=== PATIENT | male | born 1980 | race Caucasian/White ===

== ENCOUNTER → 2017-10-24 10:30 | Outpatient (CLI) | payer MEDICARE, MEDICAID, SELFPAY | PROVIDERS: PCP Nurse Practitioner Family; Visit Provider Psychiatry & Neurology Neurology | DX: G40.011 Localization-related (focal) (partial) idiopathic epilepsy and epileptic syndromes with seizures of localized onset, intractable, with status epilepticus (principal) | CPT/HCPCS: 99213 ==

== ENCOUNTER 2019-07-15 14:16 | Emergency (ER) | payer MEDICARE, MEDICAID, SELFPAY ==
[2019-07-15] VITALS (15 sets, daily range): BP systolic 112–134; BP diastolic 65–73; PULSE 88–109; RESP 15–24; TEMP 37.1; O2SAT 93–98
--- NOTE | 2019-07-15 14:15 | DI.CT_ITS ---
EXAM: CT HEAD WO CLINICAL HISTORY: Seizure, postictal, history of same. TECHNIQUE: Imaging Protocol: Axial computed tomography images with coronal and sagittal reformatted images were created and reviewed COMPARISON: HEAD WITHOUT CONTRAST from 02/03/2016 FINDINGS: Ventricles and Extra axial spaces: Normal in size and morphology for the patient's age. Hemorrhage: None. Cerebral parenchyma: Normal. Midline shift: None. Brainstem/Cerebellum: Normal. Calvarium: Normal. Visualized Paranasal sinuses show significant mucosal thickening of the ethmoids. Small mucous reten tion cysts or polyps are seen in the maxillary sinuses. Mastoids: Clear. Soft Tissues: Unremarkable. IMPRESSION: No acute intracranial process. RADIATION DOSE DELIVERED: Total DLP DATA REPOSITORY: All CT scans at this facility are submitted to the National Radiology Data Registry (NRDR) Dose Index Registry (DIR) with the [employer] (ACR). RADIATION OPTIMIZATION: All CT scans at this facility use at least one of these dose optimization te chniques: automated exposure control; mA and/or kV adjustment per patient size (includes targeted exa ms where dose is matched to clinical indication); or iterative reconstruction.
--- NOTE | 2019-07-15 14:22 | ED.GENADUL_ITS ---
Discharge Plan Disposition Patient Disposition: HOME Condition: Improving Discharge Details Chief Complaint: Seizure Clinical Impression: Breakthrough seizure Primary Care Provider: Martha Benedict ED Provider: aBo Lowry Home Meds and New Rx's Prescriptions: New oxcarbazepine [Trileptal] 600 mg tablet 600 mg PO BID Qty: 60 RF: 0 Continued zonisamide [Zonegran] 100 MG capsule 400 mg PO HS Qty: 360 RF: 3 clonazepam 0.5 MG tablet,disintegrating 0.5 mg PO ONCE Qty: 5 RF: 0 ibuprofen 800 MG tablet 800 mg PO q8hr prn Qty: 30 RF: 0 lorazepam 1 mg tablet 1 mg PO PRN Qty: 20 RF: 2 Briviact 50 mg tablet 50 mg PO BID Qty: 180 RF: 3 Discharge Instructions Instructions: Recurrent Seizures in Adults (ED) Additional Instructions: I discussed your case with the on-call neurologist at [facility], Dr. Zepeda. She reviewed your records and stated it appeared that you should continue to take the following medications for your seizure: Zonegran 400 mg at bedtime, Trileptal 600 mg twice a day, Brivaracetam 50mg twice daily. She also asked that you call the neurology office Tuesday or Tuesday to establish any other medication changes and further plans to evaluate you for a deep brain or vagal nerve stimulator. I have provided you with an extra prescription for Trileptal as it was unclear if this medication was refilled at your last neurology visit. Home to rest today. No working on ladders, no swimming or bathing alone, no driving. Return to the emergency department for any acute concerns. Medical Decision Making This is a 38-year-old male with a history of epileptiform seizures for which he is followed at [facility] and for which he takes by Bivaracetam and Zonegram. He was working on a home project today when bystanders state he had a brief approximately 1 to 2-minute generalized tonic-clonic seizure without fall or injury. No vomiting and no tongue laceration, no incontinence. EMS was called and patient was brought to the ED. He states his been compliant with his medications and is awaiting placement of a vagal nerve stimulator. He has a history of drug-resistant epilepsy. Per [facility] records video EEG from 2019 revealed multiple focal temporal seizures and multifocal cortical irritability. He is noted to regularly use marijuana and to have some questionable medication adherence. There has been a question of whether he would be a candidate for Epidiolex (cannabidiol). Patient was slightly postictal but able to conduct an interview. He is afebrile and well-appearing with no focal neurologic deficits. Patient had screening laboratories, CT scan of the head, was given a fluid bolus and his records were reviewed as above. It appears he missed a recent a ppointment on June [address] Anderson. CT scan of the head without acute intracranial abnormality. Laboratories with white blood cell count 11, hematocrit 45, platelets 250. Sodium 137, test 3.8, chloride 101, bicarb 15 with anion gap present likely due to lactic acid of seizure. Note of creatinine 1.4, remainder of chemistries unremarkable. Following fluids and observation patient impoved and ambulatory. Case discussed with on-call Neurology at [facility], Dr. Zepeda, who will leave a note in the chart for his primary neurologist but recommends that the patient continue/restart oxcarbazepine 600 mg twice daily. He will follow-up over the phone with clinic and is stable and improved at this time. HPI General Mode of arrival: EMS . Date/Time Provider Initiated Documentation: 07/15/19 14:23 . Limitations to Documentation: no limitations . Information obtained by: patient and EMS . History of Present Illness 38 year old M presents to the emergency department with the chief complaint of Generalized seizure for approximately 2 minutes, history of same, described as mild and similar to prior episodes, Patient reports no radiation. Patient started experiencing this minute(s) and it has been now resolved. No relieving factors improve symptom(s), No exacerbating factors reported . Patient notes no other symptoms.. Patient did receive the following treatments prior to arrival, none and other Related Data Home Medications Medication Instructions Recorded Confirmed zonisamide [Zonegran] 400 mg PO HS #360 tab-cap 04/13/17 07/15/19 clonazepam 0.5 mg PO ONCE #5 tab-cap 08/01/17 07/15/19 ibuprofen 800 mg PO q8hr prn #30 tab-cap 08/01/17 07/15/19 lorazepam 1 mg tablet 1 mg PO PRN #20 tab 01/19/18 07/15/19 brivaracetam 50 mg tablet 50 mg PO BID #180 tab-cap 18 07/15/19 oxcarbazepine [Trileptal] 600 mg PO BID #60 tab 07/15/19 Previous Rx's Medication Instructions Recorded zonisamide [Zonegran] 400 mg PO HS #360 tab-cap 04/13/17 clonazepam 0.5 mg PO ONCE #5 tab-cap 08/01/17 ibuprofen 800 mg PO q8hr prn #30 tab-cap 08/01/17 lorazepam 1 mg tablet 1 mg PO PRN #20 tab 01/19/18 brivaracetam 50 mg tablet 50 mg PO BID #180 tab-cap 02/16/18 oxcarbazepine [Trileptal] 600 mg PO BID #60 tab 07/15/19 Allergies Allergy/AdvReac Type Severity Reaction Status Date / Time No Known Allergies Allergy Unverified 07/15/19 14:23 Review of Systems Narrative: Denies headache or fever. States he has been taking his medications. See HPI. 8 systems reviewed and otherwise negative [facility] Medical History Bicuspid aortic valve (Acute) Depression (Chronic) Developmental delay, mild (Acute) Essential tremor (Acute) Focal epilepsy (Acute) Hearing loss (Acute) Surgical History (Updated 11/12/16 @ 16:24 by Chrissy Wood RN) forsal nondisplaced fx distal phalanx rgt (01/25/13) Family History (Updated 02/06/18 @ 13:06 by Leena Felipe LPN) Brother Cavernous malformation Social History Smoking/Tobacco Use Status: Current every day Tobacco Type: cigarettes Alcohol Intake: never Drug use: Occasionally Substance use type: marijuana Household members: significant other Do you feel safe at home: Yes Do you feel safe in your relationship?: Yes Exam Narrative Exam Narrative: GEN: awake, alert. Pleasant, well groomed, interactive. HEAD: Normocephalic, atraumatic ENT: Mucous membranes moist, oropharynx unremarkable without lesion or laceration, External ear exam unremarkable EYES: PERRL, EOMI NECK: Full ROM, no JULIANNA, no menigismus CHEST/RESP: Nontender, clear to auscultation bilateral, no wheeze/rhonchi/rales CARDIOVASCULAR: RRR, no murmur, rub toni. 2+ Rad pulse bilateral ABDOMEN: Soft, nontender, no mass. +Bowel sounds EXT: Full ROM, no edema, no rash Neuro: Grossly normal neurologic exam, conversant, interactive. Psych: Speech fluent, thoughts congruent, affect normal
[2019-07-15 14:34] LABS: Abs Immature Grans 0.02 k/cumm (0.0-0.09); Absolute Eosinophil Count 0.33 k/cumm (0.0-0.7); Absolute Lymphocyte Count 3.39 k/cumm (1.2-3.4); Absolute Monocyte Count 1.19 k/cumm (0.11-0.7); Absolute Neutrophil Count 6.51 k/cumm (1.2-6.7); Basophils % 0.3; Eosinophils % 2.9; HCT 45.3 % (40.0-50.0); HGB 15.7 g/dL (13.5-17.5); Immature Grans % 0.2 %; Lymphocytes % 29.5; Mean Corp. HGB Concentration 34.7 g/dL (32.0-36.0); Mean Corpuscular Hemoglobin 30.6 pg (27.0-33.0); Mean Corpuscular Volume 88.3 fL (80-95); Mean Platelet Volume 10.1 fL (8.0-11.0); Monocytes % 10.4; Neutrophils % 56.7; Platelet Count 250 x1000/uL (130-400); RBC 5.13 m/cumm (4.50-6.00); RBC Distribution Width 13.2 % (11.8-14.1); White Blood Cell Count 11.48 k/cumm (4.4-10.8)
[2019-07-15 14:35] LABS: Absolute Basophil Count 0.03 k/cumm (0.0-0.2)
[2019-07-15] MEDS: Normal Saline 1,000 ML 1000 ML IV (14:42)
[2019-07-15 14:46] LABS: ALT 26 U/L (16-63); AST 21 U/L (15-37); Albumin 4.3 g/dL (3.4-5.0); Alkaline Phosphatase 72 U/L (46-116); BUN 9 mg/dL (7-18); Bilirubin, Total 0.2 mg/dL (0.2-1.0); CREATININE 1.42 mg/dL (0.70-1.30); Calcium 8.9 mg/dL (8.5-10.1); Chloride 101 mmol/L (98-107); Estimated GFR 55.79 (mL/min/1.73m2); Glucose 133 mg/dL (74-106); Potassium 3.8 mmol/L (3.5-5.1); Sodium 137 mmol/L (136-145); Total Protein 7.9 g/dL (6.4-8.2)
--- NOTE | 2019-07-15 14:55 | DI.VRAD_ITS ---
PROCEDURE INFORMATION: Exam: CT Head Without Contrast Exam date and time: 07/15/2019 2:27 PM Age: 38 years old Clinical indication: Other: Seizure, postictal, history of same TECHNIQUE: Imaging protocol: Computed tomography of the head without contrast. Radiation optimization: All CT scans at this facility use at least one of these dose optimization techniques: automated exposure control; mA and/or kV adjustment per patient size (includes targeted exams where dose is matched to clinical indication); or iterative reconstruction. COMPARISON: CT HEAD WITHOUT CONTRAST 02/03/2016 4:41 PM FINDINGS: Brain: Normal. No hemorrhage. Unremarkable white matter. No mass effect. Ventricles: Normal. No ventriculomegaly. Bones/joints: Unremarkable. No acute fracture. Sinuses: Visualized sinuses are unremarkable. No fluid levels. Mastoid air cells: Visualized mastoid air cells are well aerated. Soft tissues: Unremarkable. IMPRESSION: No acute intracranial abnormality. Dictated and Authenticated by: Daniel Nicholas MD. Ordering:KALEY Gore MD
[2019-07-15] MEDS: Ketorolac 15 MG/ML VIAL IVP (15:15)
== END 2019-07-15 15:54 | disposition home or self-care (01) ==
LOC: ER 15:29
PROVIDERS: Emergency Provider Emergency Medicine; PCP Nurse Practitioner Family
DX: G40.909 Epilepsy, unspecified, not intractable, without status epilepticus (principal)
CPT/HCPCS: 36415; 80053; 96361; 96374; 99284; 70450; 85025; J1885

== ENCOUNTER 2019-11-21 17:13 | Emergency (ER) | payer MEDICARE, MEDICAID, SELFPAY ==
--- NOTE | 2019-11-21 17:11 | W.ED.GENAD ---
Discharge Plan Disposition Patient Disposition: HOME Condition: Stable Discharge Details Chief Complaint: Seizure Clinical Impression: Seizure Primary Care Provider: None,None ED Provider: Adwoa Painter Home Meds and New Rx's Prescriptions: Continued oxcarbazepine 600 mg tablet 600 mg PO BID RF: 0 zonisamide [Zonegran] 100 MG capsule 400 mg PO HS Qty: 360 RF: 3 ibuprofen 800 MG tablet 800 mg PO q8hr prn Qty: 30 RF: 0 lorazepam 1 mg tablet 1 mg PO PRN Qty: 20 RF: 2 Discharge Instructions Instructions: Lorazepam (By mouth), Recurrent Seizures in Adults (ED) Additional Instructions: Please take your medications as prescribed. Please keep your upcoming appointment with your neurologist. You are being sent home with lorazepam. Please use as previously prescribed and advised by your neurologist for breakthrough seizures. If you develop fever/chills, headache, visual change, weakness, sensation changes or other new/worsening symptoms please seek care urgently once again. Please continue to stay with friend or you can be monitored. Care management will be in touch to discuss living situation as well as help with ride to [facility] these were able to get new photo ID and be able to pharmacy picking technician her medications. Referrals: Horaico Platt DO [OSTEOPATHIC DOCTOR] - Discharge Data Discharge Date/Time-TO BE ENTERED AT DEPARTURE: 11/21/19 19:25 Medical Decision Making Patient is a pleasant 39-year-old gentleman presenting today with chief complaint of seizure. Patient has a known seizure disorder. Records from [facility], patient receives his neurology care reviewed. Reviewed recent note from primary care. Patient has been on oxcarbazepine and Zonegran for over a year now. Since that the patient has been having breakthrough seizures approximately 2/month. Patient is brought in via EMS after witnessed seizure which restarted prior to their arrival. Has been clearing from his postictal state. The time he arrived here, patient is answering yes/no questions but does seem slow in his responses. He is denying any pain. Reports that this feels similar to when he has had seizures historically. Has not had any nausea vomiting. No trauma. He denies alcohol or drug use, smoking history. Patient continues to clear is much more forthcoming with his answers at this time. 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 This is reiterated in the neurology notes from [facility]. He reports that he does have the medications at his place of residence currently. He reports that he is couch hopping as he does not have a stable residence at this time. States that typically his mother does help with medical decision making he would not like me to call her at this time. He is recently from his significant other. Does not sound that he has consistent places at this point. Denies any fevers or chills. Visual change, headache. Denies any weakness or sensory changes. No change in bladder or bowel habits. No incontinence. On exam, patient does have a small abrasion to the left side of his tongue consistent with him biting during seizure. Neuro exam is otherwise intact he is able to follow-up with me as well with no focal areas of weakness. No evidence of trauma. Plan for baseline labs. As this is no disorders, I do not feel that imaging is necessary at this point. I will have care management involved I am concerned with the patient's current living situation as well as inability for him to pharmacy picking technician his lorazepam on a scheduled basis. It is unclear why the patient missed 2 doses of his medications. This is likely what caused him to have seizures today. Labs reviewed. Significant for TSH of 6.04. Free T4 of 0.77. Patient refused to give urine sample. Ethyl alcohol within normal limits. Spoke with care management. She advised that patient would be eligible for ride to the [facility]. As it is after hours, she will reach out to primary care office and discuss patient with a chronic healthcare account manager regarding housing as well as assistance with medication which, in this patient's case, will include getting a photo ID. Patient I discussed disposition. He is feeling at baseline in a postictal period. He states that he is often fatigued for several hours after his seizure. However, his neurologic exam is completely intact. He was given his medications while here. He has an upcoming appointment in a few days with neurology. I will send him home with a few lorazepam as he is unable to pick these up from the pharmacy. Patient was given strict return precautions. He does have a safe place to go tonight and will be able to be in the presence of friend. All of his questions and concerns were addressed and he is in agreement this plan. HPI General Mode of arrival: EMS. Date/Time Provider Initiated Documentation: 11/21/19 17:38. Limitations to Documentation: altered mental status. Information obtained by: EMS, RN notes reviewed and old records reviewed. HPI Narrative: Patient is a 39-year-old male presenting today with chief complaint of seizure. Patient is staying with a friend. Friend called EMS when they witnessed a seizure. Patient does have a known seizure disorder. Is reported that he has not taken his medications in the past 2 days. EMS report that when they arrived, patient was in a post ictal state and has not had any seizure activity since then. They report that he has been clearing. Has not noticed any focal findings. No evidence of trauma. Related Data Home Medications Medication Instructions Recorded Confirmed zonisamide [Zonegran] 400 mg PO HS #360 tab-cap 04/13/17 11/21/19 ibuprofen 800 mg PO q8hr prn #30 tab-cap 08/01/17 11/21/19 lorazepam 1 mg tablet 1 mg PO PRN #20 tab 01/19/18 11/21/19 oxcarbazepine 600 mg tablet 600 mg PO BID 11/15/19 11/21/19 Previous Rx's Medication Instructions Recorded zonisamide [Zonegran] 400 mg PO HS #360 tab-cap 04/13/17 ibuprofen 800 mg PO q8hr prn #30 tab-cap 08/01/17 lorazepam 1 mg tablet 1 mg PO PRN #20 tab 01/19/18 Allergies Allergy/AdvReac Type Severity Reaction Status Date / Time No Known Allergies Allergy Verified 11/21/19 17:20 General BECKY: 3 Review of Systems Unobtainable due to mental status (Patient is postictal) [facility] Medical History Bicuspid aortic valve (Acute) Depression (Chronic 11/11/16) Per Dr. John note dated 05/16/13 Developmental delay, mild (Acute) Essential tremor (Acute) Focal epilepsy (Acute) Hearing loss (Acute) Surgical History forsal nondisplaced fx distal phalanx rgt (01/25/13) Family History (Updated 02/06/18 @ 13:06 by Leena Felipe, [employer] WORK[employer]) Brother Cavernous malformation Social History Smoking/Tobacco Use Status: Current every day Tobacco Type: cigarettes Alcohol Intake: never Drug use: Occasionally Substance use type: marijuana Household members: significant other Number of Children: 2 Communication Needs: None current occupation: Disabled due to Seizures What type of physical activity do you participate in: none Seatbelt use: always Drive intox or ride w/intox lunch truck driver: No Do you feel safe at home: Yes Do you feel safe in your relationship?: Yes Exam Const General: cooperative, healthy appearing, uncomfortable, no acute distress, well developed and well groomed Nutritional Appearance: average body habitus and well nourished Orientation: alert, awake and oriented x3 HENMT Head: normal to inspection, no palpable skull fracture, normocephalic and atraumatic Ears: hearing grossly normal bilaterally, external ears normal and TM's normal bilaterally General nose exam: external nose normal Mouth: oral mucosae normal and moist mucous membranes Throat: posterior oropharynx normal Eyes General: appearance normal, both eyes and all related structures Alignment and Position: alignment normal Periorbital: periorbital findings normal Eyelids: eyelids normal Sclera: sclerae normal Cornea: corneas normal Pupils: PERRL EOM: EOM intact bilaterally Neck Neck: normal visual inspection, full ROM, no lymphadenopathy and no meningeal signs Resp Effort & Inspection: normal respiratory effort, able to speak in complete sentences and no respiratory distress Auscultation: clear to auscultation bilaterally, no rales, no rhonchi and no wheezes Cardio Rate: regular rate Rhythm: regular rhythm Heart Sounds: S1 normal and S2 normal GI Inspection: normal to inspection and non-distended Palpation: soft, no hepatosplenomegaly, not firm, no guarding, not rigid and nontender Percussion: normal to percussion Auscultation: normal bowel sounds Back/Spine/Pelvis Cervical Spine: normal cervical lordosis and cervical ROM normal Skin General skin exam: no rashes or lesions noted Neuro General: patient alert, patient awake and patient oriented x3 Cranial Nerves: CN's II-XI intact bilaterally Cognition: normal cognition Speech: speech normal Gait: normal gait Motor: muscle tone normal throughout, strength 5/5 throughout, no pronator drift, no movement abnormalities noted and no fasciculations Sensory Exam: no sensory deficits noted Coordination: [id number] test normal and [id number] test normal Extrem General: normal to inspection, capillary refill normal, no pedal edema and no calf tenderness Psych Appearance: grossly normal and well kempt Mental Status: mental status grossly normal Speech and Movement: speech and movement normal
[2019-11-21 17:12] VITALS: BP 131/79; PULSE 73; RESP 16; TEMP 37.2; O2SAT 99
--- NOTE | 2019-11-21 17:15 | RT.EKG_ITS ---
APPROVED REPORT Exam: Resting ECG Patient Location: E HR:69 bpm ECG Measurements Heart Rate 69 AXIS NV 197 P 66 QRSd 94 QRS 48 QT 372 T 49 QTc 399 Conclusion Sinus rhythm...normal P axis, V-rate 60- 99 ST elev, probable normal early repol pattern...ST elevation, age<55
[2019-11-21] MEDS: OXcarbazepine 150 MG TAB 600 MG PO (17:31)
[2019-11-21] MEDS: Zonisamide 100 MG CAP 400 MG PO (17:31)
[2019-11-21 17:51] LABS: ALT 54 U/L (16-63); AST 31 U/L (15-37); Albumin 3.7 g/dL (3.4-5.0); Alkaline Phosphatase 78 U/L (46-116); Anion Gap 7.7 mmol/L (3-11); BUN 11 mg/dL (7-18); Bilirubin, Total 0.2 mg/dL (0.2-1.0); CO2 29.3 mmol/L (21.0-32.0); CREATININE 0.99 mg/dL (0.70-1.30); Calcium 8.9 mg/dL (8.5-10.1); Chloride 102 mmol/L (98-107); Glucose 79 mg/dL (74-106); Magnesium 2.1 mg/dL (1.8-2.4); Potassium 3.9 mmol/L (3.5-5.1); Sodium 139 mmol/L (136-145); TSH 6.04 uIU/mL (0.36-3.74); Total Protein 7.2 g/dL (6.4-8.2)
[2019-11-21 18:02] LABS: ETHANOL BLOOD < 3.0 mg/dL (<3)
[2019-11-21 18:35] LABS: Abs Immature Grans 0.06 10^3/uL (0.0-0.06); Absolute Basophil Count 0.09 10^3/uL (0.0-0.2); Absolute Eosinophil Count 0.71 10^3/uL (0.0-0.7); Absolute Lymphocyte Count 3.52 10^3/uL (1.2-3.4); Absolute Monocyte Count 0.92 10^3/uL (0.1-0.8); Absolute Neutrophil Count 6.17 10^3/uL (1.2-6.7); Basophils % 0.8; Eosinophils % 6.2; HCT 47.3 % (40.0-50.0); HGB 15.6 g/dL (13.5-17.5); Immature Grans % 0.5; Lymphocytes % 30.7; MCH 30.1 pg (27.0-33.0); MCV 91.3 fL (80-95); MPV 10.1 fL (8.0-11.0); Neutrophils % 53.8; Nucleated RBC 0 %; Platelet Count 243 10^3/uL (130-400); RBC 5.18 10^6/uL (4.36-5.78); RDW 12.9 % (11.8-14.1); RDW-SD 43.6 fL; WBC 11.47 10^3/uL (4.4-10.8)
[2019-11-21 18:54] LABS: FREE T4 0.77 ng/dL (0.76-1.46)
[2019-11-21 19:22] VITALS: BP 128/85; PULSE 76; RESP 18; O2SAT 99
[2019-11-21] MEDS: LORazepam 1 MG TAB 3 MG PO (19:22)
== END 2019-11-21 19:25 | disposition home or self-care (01) ==
PROVIDERS: Emergency Provider Physician Assistant
DX: G40.909 Epilepsy, unspecified, not intractable, without status epilepticus (principal); Z91.14 Patient's other noncompliance with medication regimen
CPT/HCPCS: 80053; 80307; 93005; 99284; 80320; 81003; 83735; 84439; 84443; 85025; 93010